=== PATIENT | female | born 1985 | race Caucasian/White ===

== ENCOUNTER 2018-01-08 09:10 | Emergency (ER) | payer SELFPAY ==
[~2018-01-08] VITALS: Ht 165.1 cm; Wt 55.8 kg
[~2018-01-08 09:10] MED LIST: AUGMENTIN 875 M1 TAB PO; BACTRIM DS 8001 TA1 PO; NKHM; PRENATAL1 TA1 PO; TRAMADOL HCL50 MG PO; TRIMOX500 MG PO
[2018-01-08] MEDS ORDERED: CEPHALEXIN500 M1 PO (09:28)
== END 2018-01-08 09:33 | disposition home or self-care (01) ==
LOC: ED 09:10
DX: S90.861A Insect bite (nonvenomous), right foot, initial encounter (principal); Z79.899 Other long term (current) drug therapy; W57.XXXA Bitten or stung by nonvenomous insect and other nonvenomous arthropods, initial encounter; Y93.89 Activity, other specified; Y92.89 Other specified places as the place of occurrence of the external cause; Y99.9 Unspecified external cause status

== ENCOUNTER 2025-09-26 23:47 | Emergency (ER) | payer MEDICAID ==
[~2025-09-26] VITALS: Ht 165.1 cm; Wt 61.2 kg
[~2025-09-26 23:47] MED LIST changes: +CEPHALEXIN500 M1 PO
[2025-09-27 01:02] LABS: MEAN CELL VOLUME 90.0 fl (81.0-99.0); MEAN CORPUSCULAR HGB 30.0 pg (27.0-31.0); MEAN PLATELET VOLUME 12.6 fl (9.6-12.3); NUCLEATED RED BLOOD CELL 0.0 % (0.0-0.0); NUCLEATED RED BLOOD CELL 0.0 10*3/uL (0.0-0.0); PLATELET COUNT AUTOMATED 173 10*3/uL (130-400); RED CELL DISTRI WIDTH 12.8 % (0-14.5)
[2025-09-27 01:07] LABS: MANUAL DIFF REFLEX YES
[2025-09-27 01:21] LABS: BUN 11 mg/dl (9-23)
[2025-09-27 01:29] LABS: PLATELET SUFFICIENCY NORMAL (NORMAL)
[2025-09-27 04:55] LABS: BILIRUBIN Negative (Negative); BLOOD Negative (Negative); CLARITY Cloudy (Clear); COLOR Yellow (Yellow); KETONE Negative (Negative); LEUKO ESTERASE Trace (Negative); NITRITE Negative (Negative); PH 6.5 (4.5-8.0); SPECIFIC GRAVITY 1.015 (1.001-1.030); UROBILINOGEN 0.2 E.U./dl (0.0-1.0)
[2025-09-27 05:03] LABS: URINE AMPHETAMINES Negative (1000ng/ml); URINE BARBITURATES Negative (200ng/ml); URINE BENZODIAZEPINES Negative (200ng/ml); URINE CANNABINOIDS (THC) Positive (50ng/ml); URINE COCAINE Negative (300ng/ml); URINE METHADONE Negative (300ng/ml); URINE OPIATES Negative (300ng/ml); URINE PHENCYCLIDINE Negative (25ng/ml)
[2025-09-27 05:06] LABS: BACTERIA TRACE; EPITHELIAL CELLS 21-30
[2025-09-27] MEDS ORDERED: Lidocaine Hydrochloride 5 ML AMP SC ONE (06:30)
[2025-09-27] MEDS ORDERED: CEPHALEXIN500 M1 PO (08:10)
[2025-09-27] MEDS ORDERED: CEPHALEXIN 500 MG CAP PO ONE (08:15)
== END 2025-09-27 08:32 | disposition home or self-care (01) ==
LOC: ED 23:47
PROVIDERS: Emergency Medicine
DX: S01.112A Laceration without foreign body of left eyelid and periocular area, initial encounter (principal); R42 Dizziness and giddiness; R11.10 Vomiting, unspecified; W18.39XA Other fall on same level, initial encounter; Y93.89 Activity, other specified; Y92.89 Other specified places as the place of occurrence of the external cause; Y99.8 Other external cause status